=== PATIENT | male | born 1935 | race Caucasian/White ===

== ENCOUNTER 2023-09-05 15:04 | Emergency (ER) | payer MEDICARE ==
[~2023-09-05] VITALS: Ht 180.3 cm; Wt 98.4 kg
[2023-09-05 16:33] LABS: IMMATURE GRANULOCYTE ABSOLUTE 0.09 K/uL (0-1); LYMPHOCYTES # (AUTO) 0.3 K/uL (1.0-4.8); LYMPHOCYTES % (AUTO) 3.5 % (21.0-51.0); MEAN CORPUSCULAR HEMOGLOBIN 28.3 pg (27.0-33.0); MEAN CORPUSCULAR HGB CONC 30.8 g/dL (32.0-36.0); MEAN CORPUSCULAR VOLUME 91.8 fL (79-99); MONOCYTES # (AUTO) 3.5 K/uL (0.1-1.0); MONOCYTES % (AUTO) 40.8 % (3.0-13.0); NEUTROPHILS # (AUTO) 4.7 K/uL (1.8-7.7); NEUTROPHILS % (AUTO) 54.6 % (40.0-77.0); PLATELET COUNT (AUTO) 100 K/uL (130-400); RED BLOOD CELL COUNT(AUTO) 2.19 MIL/uL (4.50-6.20); RED CELL DISTRIBUTION WIDTH 19.5 % (11.0-15.5); WHITE BLOOD COUNT (AUTO) 8.5 K/uL (4.8-10.8)
[2023-09-05 16:40] LABS: INR 1.04 (0.85-1.15); PROTHROMBIN TIME 12.2 SEC (9.6-11.6)
[2023-09-05 16:41] LABS: PARTIAL THROMBOPLASTIN TIME 29.1 SEC (26.3-35.5)
[2023-09-05 16:53] LABS: CREATININE 0.9 mg/dL (0.5-1.3); POTASSIUM 3.3 mmol/L (3.5-5.1)
[2023-09-05 16:57] LABS: ALBUMIN 3.6 g/dL (3.5-5.0); BILIRUBIN,TOTAL 0.8 mg/dL (0.2-1.0); TOTAL PROTEIN, SERUM 6.6 g/dL (6.0-8.3)
[2023-09-05 16:58] LABS: B-TYPE NATRIURETIC PEPTIDE 155 pg/mL (0-100)
[2023-09-05 17:07] LABS: HEMATOCRIT 20.1 % (42-54)
[2023-09-05] MEDS ORDERED: ASCO-477 PO (21:47)
[2023-09-05] MEDS ORDERED: FERR-63 PO (21:47)
[2023-09-05 22:03] VITALS: BP 132/62; PULSE 80; RESP 18; O2SAT 97
== END 2023-09-05 22:27 | disposition home or self-care (01) ==
LOC: EDH 15:04 → EDBD 15:04 → EDH 22:27
DX: D64.9 Anemia, unspecified (principal); E78.00 Pure hypercholesterolemia, unspecified; I10 Essential (primary) hypertension
CPT/HCPCS: 99285; 36430; 71045; 84484; 80053; 83880; 85025; 85610; 85730; 86850; 86900; 86901; 86923; 87040 ×2; 83605; 36415; 93005; P9016

== ENCOUNTER 2024-04-20 09:30 | Emergency (ER) | payer MEDICARE ==
[~2024-04-20] VITALS: Ht 177.8 cm; Wt 93.0 kg
[~2024-04-20 09:30] MED LIST: ASCO-477 PO; FERR-63 PO
[2024-04-20 10:15] LABS: BASOPHILS # (AUTO) 0.02 K/uL (0.00-0.20); BASOPHILS % (AUTO) 0.2 % (0.0-5.0); EOSINOPHILS # (AUTO) 0.02 K/uL (0.00-0.70); EOSINOPHILS % (AUTO) 0.2 % (0.0-8.0); HEMATOCRIT 23.5 % (42-54); IMMATURE GRANULOCYTE ABSOLUTE 0.65 K/uL (0-1); LYMPHOCYTES # (AUTO) 1.5 K/uL (1.0-4.8); LYMPHOCYTES % (AUTO) 17.3 % (21.0-51.0); MEAN CORPUSCULAR HEMOGLOBIN 26.3 pg (27.0-33.0); MEAN CORPUSCULAR HGB CONC 29.8 g/dL (32.0-36.0); MEAN CORPUSCULAR VOLUME 88.3 fL (79-99); MONOCYTES # (AUTO) 2.3 K/uL (0.1-1.0); MONOCYTES % (AUTO) 26.2 % (3.0-13.0); NEUTROPHILS # (AUTO) 4.2 K/uL (1.8-7.7); NEUTROPHILS % (AUTO) 48.6 % (40.0-77.0); NUCLEATED RED BLOOD CELLS 0.2 % (0.0-0.19); PLATELET COUNT (AUTO) 105 K/uL (130-400); RED BLOOD CELL COUNT(AUTO) 2.66 MIL/uL (4.50-6.20); RED CELL DISTRIBUTION WIDTH 18.4 % (11.0-15.5); WHITE BLOOD COUNT (AUTO) 8.7 K/uL (4.8-10.8)
--- NOTE | 2024-04-20 10:18 | ERN ---
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 PER PATIENT HE WAS SEEN BY HIS PCP TWO WEEKS AGO AND WAS TOLD HIS HEMOGLOBIN WAS AT 6.9. PATIENT STATES HE HAS HAD MULTIPLE ENDOSCOPIES AND COLONOSCOPIES BUT HAVE NOT FOUND THE SITE OF HIS BLEED. Allergies: Coded Allergies: No Known Drug Allergies (Unverified Allergy, Unknown, 09/05/23) Home Meds Active Scripts Ascorbic Acid/Ascorbate Sodium (Vit C-Rea Hips 500 mg Chew Tb) 500 Mg Tab.chew, 1000 MG PO DAILY, #60 TAB.CHEW Prov:SIENNA REID MD 09/05/23 Ferrous Sulfate (Feosol) 325 Mg (65 Mg Iron) Tablet, 325 MG PO DAILY, #30 TAB Prov:SIENNA REID MD 09/05/23 Past Medical History Past Medical History: Anemia, High Cholesterol, Hypertension Past Surgical History: Tonsillectomy, Other Surgical History Other: FOOT SX Social History Social History: Negative, Lives with family ROS Dictation CONSTITUTIONAL: NO CHILLS, NO FEVER, NO WEAKNESS, NO DIAPHORESIS, NO MALAISE. HEAD/FACE: NO SIGNS OF TRAUMA. EENT: NO EYE PAIN, NO BLURRED VISION, NO TEARING, NO DOUBLE VISION, NO EAR PAIN, NO EAR DISCHARGE, NO NOSE PAIN, NO NASAL CONGESTION, NO THROAT PAIN, NO THROAT SWELLING, NO MOUTH PAIN. RESPIRATORY: NO COUGH, NO ORTHOPNEA, NO SOB, NO STRIDOR, NO WHEEZING. CARDIOVASCULAR: NO CHEST PAIN, NO EDEMA, NO PALPITATIONS, NO SYNCOPE. GASTROINTESTINAL/ABDOMINAL: NO ABDOMINAL PAIN, NO CONSTIPATION, NO DIARRHEA, NO NAUSEA, NO VOMITING. GENITOURINARY: NO ABNORMAL DISCHARGE, NO DYSURIA, NO FREQUENT URINATION, NO HEMATURIA. NO COMPLAINTS OF PAIN IN THE GENITALS. MUSCULOSKELETAL: NO BACK PAIN, NO GOUT, NO JOINT PAIN, NO JOINT SWELLING, NO MUSCLE PAIN, NO MUSCLE STIFFNESS, NO NECK PAIN. INTEGUMENTARY: NO CHANGE IN COLOR, NO CHANGE IN HAIR/NAILS, NO DRYNESS, NO LESION, NO LUMPS, NO RASH. NEUROLOGICAL/PSYCH: NO ANXIETY, NOT DEPRESSED, NO EMOTIONAL PROBLEM, NO HEADA ARASH, NO NUMBNESS, NO PRE-EXISTING DEFICIT, NO HISTORY OF SEIZURES, NO TREMORS, NO WEAKNESS. HEMATOLOGIC/LYMPHATIC: NOT ANEMIC, NO HISTORY OF BLOOD CLOTS, NO APPARENT BLEEDING, NO BRUISING, GLANDS NOT SWOLLEN. ALL SYSTEMS NEGATIVE, EXCEPT NOTED. Physical Exam Physical Exam Dictation VITAL SIGNS: REVIEWED. GENERAL APPEARANCE: ALERT, ORIENTED X3, NO ACUTE DISTRESS, OBESE. HEAD AND FACE: NON-TRAUMATIC. EYES: PERRL, PINK CONJUNCTIVAS, EYELID NO TRAUMA, ANTERIOR CHAMBER CLEAR. EARS: PINNAS INTACT AND NO SIGNS OF TRAUMA OR ERYTHEMA. EAR CANALS CLEAR AND NO DISCHARGE. TMS NO ERYTHEMA. NOSE: NO DISCHARGE, NO BLEEDING. OROPHARYNX: MOUTH NORMAL, TEETH NO CARIES, TONGUE PINK. PHARYNX CLEAR, NO ERYTHEMA. TONSILS NO EXUDATES, NO ABSCESSES NOTED. MUCOUS MEMBRANE MOIST. NECK: SUPPLE, NON-TENDER, NO THYROMEGALY, NO MASSES, NO JVD, NO BRUITS. BREAST: DEFERRED. CHEST: NO TENDERNESS, NO CREPITUS, NO PARADOXICAL MOVEMENT, NO RETRACTIONS. LUNGS: CLEAR, WELL-VENTILATED, SYMMETRIC, NO RALES, NO WHEEZING, NO RHONCHI, NO STRIDOR, GOOD BREATH SOUNDS BILATERALLY. HEART: REGULAR RATE, REGULAR RHYTHM, NO MURMUR, NO GALLOPS. VASCULAR: NO PERIPHERAL EDEMA. ABDOMEN: SOFT, POSITIVE BOWEL SOUNDS, NONDISTENDED, NO GUARDING, NONTENDER, NO REBOUND, NO MASSES NO HEPATOMEGALY, NO SPLENOMEGALY, NO DRAKE'S SIGN, NO HERNIAS. RECTAL: DEFERRED. GENITAL: DEFERRED. NEUROLOGICAL: NORMAL SPEECH, GROSS MOTOR FUNCTION INTACT, GROSS SENSORY FUNCTION INTACT. MUSCULOSKELETAL: NECK NONTENDER, FULL RANGE OF MOTION, BACK NONTENDER, FULL RANGE OF MOTION. EXTREMITIES: NONTENDER, FULL RANGE OF MOTION. SKIN: COLOR PINK, DRY, NO TURGOR, NO RASH, NO LACERATIONS, NO ABRASIONS, NO CONTUSIONS. LYMPHATICS: DEFERRED. Results Laboratory and Microbiology Lab and Micro Result Laboratory Tests Test 04/20/24 09:52 White Blood Count 8.7 K/uL (4.8-10.8) Red Blood Count 2.66 MIL/uL (4.50-6.20) L Hemoglobin 7.0 g/dL (14.0-18.0) *L Hematocrit 23.5 % (42-54) L Mean Corpuscular Volume 88.3 fL (79-99) Mean Corpuscular Hemoglobin 26.3 pg (27.0-33.0) L Mean Corpuscular Hemoglobin Concent 29.8 g/dL (32.0-36.0) L Red Cell Distribution Width 18.4 % (11.0-15.5) H Platelet Count 105 K/uL (130-400) L Mean Platelet Volume 11.6 fL (7.5-10.5) H Immature Granulocyte % (Auto) 7.5 % (0-1) H Neutrophils (%) (Auto) 48.6 % (40.0-77.0) Lymphocytes (%) (Auto) 17.3 % (21.0-51.0) L Monocytes (%) (Auto) 26.2 % (3.0-13.0) H Eosinophils (%) (Auto) 0.2 % (0.0-8.0) Basophils (%) (Auto) 0.2 % (0.0-5.0) Neutrophils # (Auto) 4.2 K/uL (1.8-7.7) Lymphocytes # (Auto) 1.5 K/uL (1.0-4.8) Monocytes # (Auto) 2.3 K/uL (0.1-1.0) H Eosinophils # (Auto) 0.02 K/uL (0.00-0.70) Basophils # (Auto) 0.02 K/uL (0.00-0.20) Absolute Immature Granulocyte (auto 0.65 K/uL (0-1) Nucleated Red Blood Cells 0.2 % (0.0-0.19) H Sodium Level 139 mmol/L (136-145) Potassium Level 4.3 mmol/L (3.5-5.1) Chloride Level 102 mmol/L (101-111) Carbon Dioxide Level 30 mmol/L (21-32) Blood Urea Nitrogen 25 mg/dL (7-18) H Creatinine 1.0 mg/dL (0.5-1.3) Glomerular Filtration Rate Calc 73 mL/min (>90) Random Glucose 99 mg/dL (70-105) Total Calcium 9.0 mg/dL (8.5-10.1) Labs Reviewed?: Yes MDM MDM: Differential diagnosis: History of anemia, chronic anemia, iron deficiency anemia Patient is a an 89-year-old male coming in to be evaluated for possible anemia. Patient does have a chronic history of anemia and frequently gets transfused. He states that he was seen by his PCP and sent in for further evaluation. Patient is being evaluated by Dr. Bacon him. Laboratory workup negative for acute findings. Patient will be discharged with a diagnosis of chronic anemia. Hemoglobin is at seven but it is chronically low so patient will be discharged in stable condition ED Course Orders Procedure Category Date Status Time Cbc With Differential LAB 04/20/24 In Process 09:32 Basic Metabolic Panel LAB 04/20/24 Complete 09:32 Occult Blood Stool LAB 04/20/24 Logged Single Only 09:32 Vital Signs Date Time Temp Pulse Resp B/P (MAP) Pulse Ox O2 Delivery O2 Flow Rate FiO2 04/20/24 09:32 97.9 82 16 121/62 100 Room Air 0 DX & DISP Disposition: Discharge Departure Impression: Primary Impression: Anemia Condition: Stable Additional Instructions: FOLLOW-UP WITH PRIMARY CARE PROVIDER IN 1 TO 2 DAYS. TAKE MEDICATIONS DIRECTED HERE IN THE EMERGENCY ROOM. OKAY TO CONTINUE HOME MEDICATIONS UNLESS OTHERWISE DISCUSSED DURING YOUR VISIT IN THE EMERGENCY ROOM TODAY. RETURN TO YOUR NEAREST EMERGENCY ROOM IF SYMPTOMS WORSEN OR IF THERE IS NO IMPROVEMENT. CALL 911 IF YOU NEED IMMEDIATE ASSISTANCE. TAKE TYLENOL [id number] NEEDED AND IF NO CONTRAINDICATIONS ARE PRESENT. INCREASE ORAL HYDRATION. A WOUND CULTURE OR URINE CULTURE WAS ORDERED HERE IN THE EMERGENCY ROOM DEPARTMENT PLEASE FOLLOW-UP WITH PRIMARY CARE PROVIDER AND ADVISE THEM TO GET REPEAT PORTS FROM OUR FACILITY. IF YOU HAD ANY JORGE WRAP/SPLINTS THAT WERE APPLIED HERE, PLEASE DO NOT REMOVE THEM UNTIL YOU SEE YOUR PRIMARY CARE OR SPECIALTY. Referrals: Referrals: NONE (PCP) BRYSON ARREGUIN MD Time of Disposition: 11:10 ABRAHAM CABRERA MD Apr 20, 2024 10:18
[2024-04-20 10:21] LABS: POTASSIUM 4.3 mmol/L (3.5-5.1)
[2024-04-20 11:17] VITALS: BP 123/65; PULSE 80; RESP 16; TEMP 97.6; O2SAT 100
== END 2024-04-20 11:19 | disposition home or self-care (01) ==
LOC: EDH 09:30
DX: D50.9 Iron deficiency anemia, unspecified (principal); E78.00 Pure hypercholesterolemia, unspecified; I10 Essential (primary) hypertension; Z79.899 Other long term (current) drug therapy; Z90.89 Acquired absence of other organs; Z98.890 Other specified postprocedural states
CPT/HCPCS: 36415; 80048; 85025; 99284